=== PATIENT | female | born 1995 | race African-American/Black ===

== ENCOUNTER 2017-09-27 18:59 | Emergency (ER) | payer SELFPAY ==
[~2017-09-27] VITALS: Ht 167.6 cm; Wt 61.7 kg
[~2017-09-27 18:59] MED LIST: AMOXICILLIN 50500 MG PO; INVEGA1.5 MG; NO HOME MEDICATIONS
[2017-09-27 19:29] VITALS: BP 131/58; PULSE 115; TEMP 98
== END 2017-09-27 19:40 | disposition home or self-care (01) ==
LOC: COL.ER 18:59
DX: F32.9 Major depressive disorder, single episode, unspecified (principal); F41.9 Anxiety disorder, unspecified

== ENCOUNTER 2017-11-18 16:38 | Emergency (ER) | payer SELFPAY ==
[~2017-11-18] VITALS: Ht 167.6 cm; Wt 59.1 kg
[2017-11-18] MEDS ORDERED: RISPERDAL 1M1 MG/TAB PO (17:09)
[2017-11-18 17:16] LABS: BASO % 0.2 % (0.0-2.0); GRAN # 8.5 (1.4-6.5); GRAN % 89.2 % (42.2-75.2); HEMATOCRIT 38.7 % (35.0-45.0); HEMOGLOBIN 12.9 g/dl (12.0-15.0); LYMPH # 0.7 (1.2-3.4); LYMPH % 6.9 % (20.0-51.0); MEAN CELL VOLUME 96 fl (80.0-95.0); MEAN CORPUSCULAR HEMOGLOBIN 32 pg (26.0-32.0); MEAN CORPUSCULAR HGB CONC 33 g/dl (33.0-37.0); MEAN PLATELET VOLUME 9.4 fl (7.4-10.4); MONO # 0.3 (0.1-0.6); MONO % 3.5 % (1.7-9.3); PLATELET COUNT 352 K/mm3 (130-400); RED BLOOD COUNT 4.04 M/mm3 (4.10-5.30); REDCELL DISTRIBUTION WIDTH-CV 12.4 % (11.5-14.5)
[2017-11-18 17:25] LABS: ACETAMINOPHEN < 10 ug/mL (10-30); ALANINE AMINOTRANSFERASE 25 U/L (9-52); ALBUMIN 4.4 gm/dL (3.5-5.0); ALCOHOL(ethanol),MEDICAL < 10 mg/dL; ALKALINE PHOSPHATASE 86 U/L (50-136); ANION GAP 17 mmol/L (7-16); AST,SGOT 25 U/L (15-37); BILIRUBIN,TOTAL 0.5 mg/dL (0.0-1.0); BLOOD UREA NITROGEN 15 mg/dL (7-17); CALCIUM 10.1 mg/dL (8.4-10.2); CARBON DIOXIDE 23 mmol/L (22-30); CHLORIDE 103 mmol/L (98-107); CREATININE, serum 0.91 mg/dL (0.52-1.25); GLUCOSE 114 mg/dL (74-106); POTASSIUM 3.9 mmol/L (3.4-5.0); SALICYLATE < 1.0 mg/dL; SODIUM 143 mmol/L (137-145); TOTAL PROTEIN 8.2 gm/dL (6.4-8.2)
[2017-11-18 18:36] LABS: COLLECTION METHOD CLEAN CATCH
[2017-11-18 18:48] LABS: MUCOUS Present /lpf; PH 5 (5-8); SQUAMOUS EPITHELIAL 0-2 /hpf; URINE APPEARANCE Clear; URINE BACTERIA Rare /hpf; URINE BILIRUBIN Negative (NEGATIVE); URINE BLOOD 3+ (NEGATIVE); URINE COLOR Yellow; URINE GLUCOSE Negative (NEGATIVE); URINE KETONE 2+ (NEGATIVE); URINE LEUKOCYTE ESTERASE 1+ (NEGATIVE); URINE NITRATE Negative (NEGATIVE); URINE PROTEIN(semi-quant) 1+ (NEGATIVE)
[2017-11-18 18:56] LABS: TRICYCLIC ANTIDEPRESS URINE NEGATIVE
[2017-11-19 08:26] VITALS: BP 110/63; PULSE 80; TEMP 97.4
== END 2017-11-19 08:38 ==
LOC: COL.ER 16:38
PROVIDERS: Emergency Medicine
DX: F20.9 Schizophrenia, unspecified (principal)

== ENCOUNTER 2021-11-25 12:11 | Emergency (ER) | payer MEDICAID ==
[~2021-11-25] VITALS: Ht 172.7 cm; Wt 93.2 kg
[~2021-11-25 12:11] MED LIST changes: +RISPERDAL 1M1 MG/TAB PO
[2021-11-25] MEDS ORDERED: VRAYLAR4.5 MG PO (12:26)
[2021-11-25] MEDS ORDERED: INVEGA SUSTENN234 MG (12:26)
[2021-11-25 12:54] LABS: BASO % 0.4 % (0.0-2.0); EOS % 0.2 % (0.0-4.0); GRAN # 3.6 K/mm3 (1.4-6.5); GRAN % 68.6 % (42.2-75.2); HEMATOCRIT 39.6 % (37.0-47.0); HEMOGLOBIN 12.5 g/dl (12.5-16.0); LYMPH # 1.1 K/mm3 (1.2-3.4); LYMPH % 21.5 % (20.0-51.0); MEAN CELL VOLUME 95 fl (80.0-100.0); MEAN CORPUSCULAR HEMOGLOBIN 30 pg (27-31); MEAN CORPUSCULAR HGB CONC 32 g/dl (33.0-37.0); MONO # 0.5 K/mm3 (0.1-0.6); MONO % 9.1 % (1.7-9.3); PLATELET COUNT 335 K/mm3 (130-400); RED BLOOD COUNT 4.18 M/mm3 (4.10-5.30); REDCELL DISTRIBUTION WIDTH-CV 13.6 % (11.5-14.5)
[2021-11-25 13:10] LABS: ALANINE AMINOTRANSFERASE 8 U/L (0-55); ALBUMIN 4.1 gm/dL (3.5-5.0); ALKALINE PHOSPHATASE 121 U/L (40-150); ANION GAP 10 mmol/L (7-16); AST,SGOT 13 U/L (5-34); BILIRUBIN,TOTAL 0.2 mg/dL (0.2-1.2); BLOOD UREA NITROGEN 15 mg/dL (7-19); CALCIUM 9.2 mg/dL (8.4-10.2); CARBON DIOXIDE 25 mmol/L (22-29); CHLORIDE 107 mmol/L (98-107); CREATININE, serum 0.97 mg/dL (0.57-1.11); GLUCOSE 102 mg/dL (70-99); POTASSIUM 4.2 mmol/L (3.5-4.5); SODIUM 142 mmol/L (136-145); TOTAL PROTEIN 7.4 gm/dL (6.2-8.1)
[2021-11-25 13:18] LABS: ACETAMINOPHEN < 1.0 ug/mL (10-30); ALCOHOL(ethanol),MEDICAL < 10 mg/dL (0-10); SALICYLATE < 5.0 mg/dL (15.0-30.0)
[2021-11-25 14:52] LABS: COLLECTION METHOD CLEAN CATCH
[2021-11-25 15:14] LABS: TRICYCLIC ANTIDEPRESS URINE NEGATIVE
[2021-11-25 15:41] LABS: URINE APPEARANCE Hazy (CLEAR/HAZY); URINE COLOR Yellow (YELLOW)
[2021-11-25 15:42] LABS: PH 5 (5-8); URINE BILIRUBIN Negative (NEGATIVE); URINE BLOOD Negative (NEGATIVE); URINE GLUCOSE Negative (NEGATIVE); URINE KETONE Negative (NEGATIVE); URINE LEUKOCYTE ESTERASE Trace (NEGATIVE); URINE NITRATE Negative (NEGATIVE); URINE PROTEIN(semi-quant) Negative (NEGATIVE); URINE UROBILINOGEN Negative (NEGATIVE)
[2021-11-25 15:43] LABS: URINE RBC 0-2 /hpf (0-2)
[2021-11-25 21:15] VITALS: BP 133/86; PULSE 75; TEMP 97.8
== END 2021-11-25 21:15 ==
LOC: COL.ER 12:11
PROVIDERS: Nurse Practitioner Primary Care
DX: F20.9 Schizophrenia, unspecified (principal); Z28.310 Unvaccinated for COVID-19